=== PATIENT | male | born 1955 | race Caucasian/White ===

== ENCOUNTER 2021-11-28 16:42 | Emergency (ER) | payer OTHER ==
[2021-11-28 18:19] LABS: BLOOD UREA NITROGEN,BUN 8 mg/dL (7.0-18.0); CARBON DIOXIDE,CO2 26.7 mmol/L (21.0-32.0); CHLORIDE,CL 101 mmol/L (98-107); GLUCOSE RANDOM 101 mg/dL (74-106); POTASSIUM,K 3.1 mmol/L (3.5-5.1); SODIUM,NA 138 mmol/L (136-148)
[2021-11-28] MEDS ORDERED: Lidocaine 2% Viscous Solution 100 ML Bottle PO ONE (18:39)
[2021-11-28] MEDS ORDERED: Lidocaine 2% Viscous Solution 15 ML UD ONE (18:44)
[2021-11-28] MEDS ORDERED: Lidocaine 2% Viscous Solution 15 ML UD PO ONE (18:46)
== END 2021-11-28 19:38 | disposition left against medical advice (07) ==
LOC: MW.ED 16:42
DX: R04.0 Epistaxis (principal); D69.6 Thrombocytopenia, unspecified; K21.9 Gastro-esophageal reflux disease without esophagitis; E11.9 Type 2 diabetes mellitus without complications
CPT/HCPCS: 30905; 36415; 80053; 85025; 99283; A9270